=== PATIENT | male | born 1940 | race Caucasian/White ===

== ENCOUNTER 2016-11-15 14:13 | Emergency (ER) | payer MEDICARE, OTHER ==
[~2016-11-15] VITALS: Ht 182.9 cm; Wt 86.2 kg
[2016-11-15] MEDS ORDERED: DIGO0.12 PO (14:37)
[2016-11-15] MEDS ORDERED: CARV40CP PO (14:37)
[2016-11-15] MEDS ORDERED: POTA10TA15 PO (14:37)
[2016-11-15] MEDS ORDERED: APIX5TAB PO (14:37)
[2016-11-15] MEDS ORDERED: FURO80TA3 PO (14:37)
[2016-11-15] MEDS ORDERED: HYDROCODONE/APAP 5/325MG 1 EACH TABLET PO ONE (15:00)
[2016-11-15] MEDS ORDERED: TDAP [DIPH/PERTUSSIS/TET] 0.5 ML VIAL IM ONE ×2 (15:00→15:26)
[2016-11-15] MEDS ORDERED: ONDANSETRON 4 MG TAB.RAPDIS SL ONE (15:00)
[2016-11-15] MEDS ORDERED: ONDANSETRON 4 MG TAB.RAPDIS ONE (15:26)
[2016-11-15] MEDS ORDERED: HYDROCODONE/APAP 5/325MG 1 EACH TABLET ONE (15:26)
[2016-11-15 15:53] VITALS: BP 113/79
== END 2016-11-15 15:54 | disposition home or self-care (01) ==
LOC: ER 14:16
DX: S09.90XA Unspecified injury of head, initial encounter (principal); S39.012A Strain of muscle, fascia and tendon of lower back, initial encounter; I48.91 Unspecified atrial fibrillation; J90 Pleural effusion, not elsewhere classified; I13.0 Hypertensive heart and chronic kidney disease with heart failure and stage 1 through stage 4 chronic kidney disease, or unspecified chronic kidney disease; N18.9 Chronic kidney disease, unspecified; W01.198A Fall on same level from slipping, tripping and stumbling with subsequent striking against other object, initial encounter; Y93.89 Activity, other specified; Y92.89 Other specified places as the place of occurrence of the external cause; Y99.9 Unspecified external cause status
CPT/HCPCS: 70450-TC; 72125-TC; 90715; A4606; Q0162; Z7610

== ENCOUNTER 2016-11-20 06:15 | Emergency (ER) | payer MEDICARE, OTHER ==
[~2016-11-20] VITALS: Ht 175.3 cm; Wt 88.9 kg
[~2016-11-20 06:15] MED LIST: APIX5TAB PO; CARV40CP PO; DIGO0.12 PO; FURO80TA3 PO; POTA10TA15 PO
[2016-11-20] MEDS ORDERED: LIDOCAINE 2% JEL UROJET 10 ML MM ONE ×4 (06:25→08:30)
[2016-11-20] MEDS ORDERED: FUROSEMIDE 40 MG/4 ML VIAL IV ONE (06:30)
[2016-11-20] MEDS ORDERED: FUROSEMIDE 40 MG/4 ML VIAL ONE ×2 (06:33→08:11)
[2016-11-20 07:03] LABS: BASOPHILS % (AUTO) 0.4 % (0.0-2.0); DIFF TOTAL % 100 %; EOSINOPHILS # (AUTO) 0.2 /CMM (0.0-0.7); EOSINOPHILS % (AUTO) 1.9 % (0.0-6.0); HEMATOCRIT 39 % (39-51); HEMOGLOBIN 13.1 g/dL (13.5-17.5); LYMPHOCYTES # (AUTO) 0.8 /CMM (0.8-4.8); LYMPHOCYTES % (AUTO) 8.1 % (20.0-44.0); MEAN CORPUSCULAR HEMOGLOBIN 31 PG (26.0-33.0); MEAN CORPUSCULAR HGB CONC 34 g/dl (31.0-36.0); MEAN CORPUSCULAR VOLUME 92 fL (80-96); MONOCYTES # (AUTO) 0.9 /CMM (0.1-1.30); MONOCYTES % (AUTO) 8.8 % (2.0-12.0); NEUTROPHILS # (AUTO) 8.3 /CMM (1.8-8.9); NEUTROPHILS % (AUTO) 80.8 % (43.0-81.0); PLATELET COUNT (AUTO) 160 /CMM (150-450); RED BLOOD CELL COUNT(AUTO) 4.22 MIL/uL (4.5-6.0); WHITE BLOOD COUNT (AUTO) 10.3 K/uL (4.3-11.0)
[2016-11-20 07:07] LABS: ANION GAP 10 (5-14); CALCIUM, SERUM 8.6 mg/dL (8.5-10.1); CARBON DIOXIDE 30 mmol/L (21-32); CHLORIDE 102 mmol/L (98-107); CREATININE 1.3 mg/dL (0.6-1.3); GLUCOSE 110 mg/dL (74-106); POTASSIUM 3.5 mmol/L (3.5-5.1); SODIUM SERUM 138 mmol/L (136-145); UREA NITROGEN, BLOOD 27 mg/dL (7-18)
[2016-11-20 07:16] LABS: TROPONIN I < 0.017 ng/mL (0.00-0.056)
[2016-11-20 07:20] LABS: ALANINE AMINOTRANSFERASE 27 U/L (12-78); ALBUMIN 2.3 g/dL (3.4-5.0); ASPARTATE AMINOTRANSFERASE 38 U/L (15-37); BILIRUBIN,DIRECT 0.3 mg/dL (0.0-0.2); BILIRUBIN,TOTAL 0.9 mg/dL (0.2-1.0); INDIRECT BILIRUBIN 0.6 mg/dL (0.0-1.1)
[2016-11-20 07:49] LABS: INR 1.06 (0.87-1.13); PROTHROMBIN TIME 11.5 SECS (9.5-12.7)
[2016-11-20] MEDS ORDERED: GABA-534 PO (08:25)
[2016-11-20] MEDS ORDERED: NALO12.5 PO (08:25)
[2016-11-20] MEDS ORDERED: MAGNESIUM CITRATE 296 ML BOTTLE ONE (08:27)
[2016-11-20] MEDS ORDERED: MAGNESIUM CITRATE 296 ML BOTTLE PO ONE (08:30)
[2016-11-20 09:12] VITALS: BP 138/70
== END 2016-11-20 09:30 | disposition home or self-care (01) ==
LOC: ER 06:18
DX: N47.1 Phimosis (principal); R33.9 Retention of urine, unspecified; I10 Essential (primary) hypertension; K59.00 Constipation, unspecified; I48.91 Unspecified atrial fibrillation; I50.9 Heart failure, unspecified
CPT/HCPCS: 36415; 51702; 71010; 80048; 80076; 83880; 84484; 85025; 85730; 93005; 96374; 99285; A4606; J1940 ×2; J3490 ×2; Z7610